=== PATIENT | female | born 1995 | race Caucasian/White ===

== ENCOUNTER 2016-07-13 14:25 | Outpatient (CLI) | payer OTHER ==
[~2016-07-13] VITALS: Ht 170.2 cm; Wt 60.5 kg
[2016-07-13] MEDS ORDERED: D5%-LACTATED RINGERS 1,000 ML IV SCH (14:42)
[2016-07-13] MEDS ORDERED: PLEASE ENTER ALLERGIES MC SCH ×2 (15:30)
[2016-07-13] MEDS ORDERED: PLEASE ENTER HEIGHT AND WEIGHT MC SCH (15:30)
[2016-07-13 16:02] VITALS: BP 109/54
[2016-07-13] MEDS ORDERED: CEFAZOLIN 1,000 MG IV SCH (17:30)
[2016-07-13] MEDS ORDERED: AZITHROMYCIN 500 MG in SODIUM CHLORIDE 0.9% 250 ML IV ONE (17:30)
[2016-07-13] MEDS ORDERED: EPHEDRINE 50 MG/ML, 1ML ONE (17:57)
[2016-07-13] MEDS ORDERED: CEFAZOLIN 1,000 MG ONE (17:57)
[2016-07-13] MEDS ORDERED: OXYcodone/APAP 5/325MG TABLET PO PRN (19:30)
[2016-07-13 20:28] VITALS: BP 117/62
[2016-07-13] MEDS ORDERED: OXYcodone/APAP 5/325MG TABLET ONE (22:33)
== END 2016-07-14 00:05 | disposition home or self-care (01) ==
LOC: LDOP 14:25
PROVIDERS: ATTEND Obstetrics & Gynecology Maternal & Fetal Medicine
DX: O34.32 Maternal care for cervical incompetence, second trimester (principal); O41.1220 Chorioamnionitis, second trimester, not applicable or unspecified; O99.512 Diseases of the respiratory system complicating pregnancy, second trimester; O10.912 Unspecified pre-existing hypertension complicating pregnancy, second trimester; J45.909 Unspecified asthma, uncomplicated; Z3A.20 20 weeks gestation of pregnancy
CPT/HCPCS: 36415; 59320; 85025; 96360; 96361; J0690